=== PATIENT | male | born 1970 | race Caucasian/White ===

== ENCOUNTER 2018-10-17 08:41 | Emergency (ER) | payer OTHER ==
[2018-10-17] MEDS ORDERED: MORPHINE SULFATE 10 MG/ML INJ IV ONE (09:10)
--- NOTE | 2018-10-17 09:34 | ER Document Report ---
ED Fall - General Chief Complaint: Fall Stated Complaint: FALL/LEFT WRIST INJURY Time Seen by Provider: 10/17/18 09:03 Primary Care Provider: DEA BURNETT DO [ACTIVE STAFF] - Follow up as needed Mode of Arrival: Ambulatory Information source: Patient Notes: Patient is an otherwise healthy 48-year-old male presenting to the emergency department with complaints of back pain and left wrist pain after falling 10 feet through a roof. Patient reports he was working on the roof when 1 of the pieces of wood broke and he fell through landing onto a wooden deck straight onto his back. He denies striking his head, denies any loss of consciousness. He reports pain through his thoracic and lumbar spine. He also reports pain to his left shoulder and left wrist. He reports limited range of motion to his left wrist. He is unsure when his last tetanus shot was. - Related data Allergies/Adverse Reactions: No Known Allergies Allergy (Unverified 10/17/18 08:43) Past Medical History - General Information source: Patient - Social History Smoking Status: Never Smoker Frequency of alcohol use: None Drug Abuse: None Family History: Reviewed & Not Pertinent Patient has suicidal ideation: No Patient has homicidal ideation: No - Past Medical History Cardiac Medical History: Reports: Hx Hypertension Renal/ Medical History: Denies: Hx Peritoneal Dialysis GI Medical History: Reports: Hx Gastroesophageal Reflux Disease Review of Systems - Review of Systems Constitutional: No symptoms reported EENT: No symptoms reported Cardiovascular: No symptoms reported Respiratory: No symptoms reported Gastrointestinal: No symptoms reported Genitourinary: No symptoms reported Male Genitourinary: No symptoms reported Musculoskeletal: See HPI Skin: No symptoms reported Hematologic/Lymphatic: No symptoms reported Neurological/Psychological: No symptoms reported Physical Exam - Vital signs Vitals: Temp Pulse Resp BP Pulse Ox 98.1 F 110 H 18 152/106 H 94 10/17/18 08:44 10/17/18 08:44 10/17/18 08:44 10/17/18 08:44 10/17/18 08:44 - Notes Notes: PHYSICAL EXAMINATION: GENERAL: Well-appearing, well-nourished and in no acute distress. HEAD: Atraumatic, normocephalic. EYES: Pupils equal round and reactive to light, extraocular movements intact, sclera anicteric, conjunctiva are normal. ENT: Nares patent, oropharynx clear without exudates. Moist mucous membranes. NECK: Normal range of motion, supple without lymphadenopathy LUNGS: Breath sounds clear to auscultation bilaterally and equal. No wheezes rales or rhonchi. HEART: Regular rate and rhythm without murmurs ABDOMEN: Soft, nontender, nondistended abdomen. No guarding, no rebound. No masses appreciated. Musculoskeletal: Swelling noted to left wrist, strong radial pulse, cap refill less than 3 seconds, normal sensation, limited range of motion. No obvious deformity. Tenderness with movement of the left shoulder, no obvious deformity or injury. Abrasion noted over left elbow, normal range of motion to elbow. Tenderness to palpation to the thoracic and lumbar spine, no step-off or deformity. NEUROLOGICAL: Cranial nerves grossly intact. Normal speech. Normal sensory, motor exams PSYCH: Normal mood, normal affect. SKIN: Abrasion to left elbow. Course - Re-evaluation Re-evalutation: Cervical Spine CT 10/17/18 09:10 IMPRESSION: No evidence of acute osseous abnormality to the cervical spine. Lumbar Spine CT 10/17/18 09:10 IMPRESSION: 1. No evidence of acute bony abnormality. 2. Lower lumbar degenerative change with broad-based disc at L4-5 and likely moderate spinal canal stenosis. Thoracic Spine CT 10/17/18 09:10 IMPRESSION: 1. Mild superior endplate compression fracture of the T6 vertebral body with approximately 5% central height loss. No significant retropulsion or osseous canal narrowing 2. Mild endplate irregularity of the T4 vertebral body without discrete fracture identified, possibly chronic. Findings discussed with Mickie Condon at 0952 hours on 10/17/2018. Elbow X-Ray 10/17/18 09:11 IMPRESSION: No definite acute bony abnormality of the left elbow. Shoulder X-Ray 10/17/18 09:11 IMPRESSION: 1. Decreased subacromial space compatible with rotator cuff loss, chronicity uncertain. Recommend correlation with patient symptoms and physical exam. 2. No other evidence of acute osseous abnormality. Wrist X-Ray 10/17/18 09:11 IMPRESSION: Comminuted distal radial fracture with extension to the radiocarpal and distal radioulnar joints. I did discuss findings of patient's CT scan with my attending physician, Dr. David. Okay for patient to follow-up outpatient with both orthopedics for his radius fracture as well as Ortho/neurosurgery for his compression fracture. All of this was discussed with the patient and his significant other at the bedside. They both verbalized understanding and agreement with this plan. Patient will be sent home with pain and nausea medication prescriptions. He will call today to schedule his follow-up appointments. ED return precautions were discussed, patient and verbalized understanding and agreement with same. 10/17/18 14:59 Patient's called inquiring about neurosurgery follow-up. I gave her Dr. Ed López's contact information. He is with [facility] neurosurgery. [phone]. - Vital Signs Vital signs: Temp Pulse Resp BP Pulse Ox 98.4 F 88 16 130/90 H 97 10/17/18 12:09 10/17/18 12:09 10/17/18 12:09 10/17/18 12:09 10/17/18 12:09 Procedures - Immobilization Left wrist Pre-Proc Neuro Vasc Exam: Normal Immobilizer type: Sugar tong Performed by: PCT Post-Proc Neuro Vasc Exam: Normal Alignment checked and good: Yes Discharge - Discharge Clinical Impression: Radius fracture Qualifiers: Encounter type: sequela Radius location: distal Fracture type: closed Fracture morphology: unspecified fracture morphology Laterality: left Qualified Code(s): S52.502S - Unspecified fracture of the lower end of left radius, sequela Compression fracture of T6 vertebra Qualifiers: Encounter type: initial encounter Qualified Code(s): S22.050A - Wedge compression fracture of T5-T6 vertebra, initial encounter for closed fracture Condition: Stable Disposition: HOME, SELF-CARE Additional Instructions: Please keep the splint in place until seen by orthopedics. Call them today to schedule an appointment. Let them know you have a T6 compression fracture and a distal radius fracture. You may need to be seen by a neurosurgeon for the T6 compression fracture. I have given you contact info for both regular orthop edics as well as neurosurgery. I would start with the orthopedics and go from there. Please take pain medication as prescribed, do not take medication while driving or operating machinery, no intake of alcohol while on this medication. Please also take ibuprofen 600 mg every 6 hours for pain and inflammation. Use the nausea medication as needed. Ice and elevate the wrist as this will help with the discomfort. No heavy lifting. Prescriptions: Ondansetron [Zofran Odt 4 mg Tablet] 1 - 2 tab PO Q4H PRN #15 tab.rapdis PRN Reason: For Nausea/Vomiting Oxycodone HCl/Acetaminophen [Percocet 5-325 mg Tablet] 1 - 2 tab PO Q4H PRN #16 tablet PRN Reason: Referrals: DEA BURNETT DO [ACTIVE STAFF] - Follow up as needed
--- NOTE | 2018-10-17 09:51 | RADIOLOGY REPORT (SQ) ---
EXAM DESCRIPTION: CT CERVICAL SPINE WITHOUT COMPLETED DATE/TIME: 10/17/2018 9:42 am REASON FOR STUDY: fall 10 feet COMPARISON: None. TECHNIQUE: Axial images acquired through the cervical spine without intravenous contrast. Images re viewed with lung, soft tissue and bone windows. Reconstructed coronal and sagittal MPR images review ed. Images stored on PACS. All CT scanners at this facility use dose modulation, iterative reconstruction, and/or weight based d osing when appropriate to reduce radiation dose to as low as reasonably achievable (ALARA). [facility]: Dose Right [facility]: CareDose [facility]: Dose Right [facility]: Teradose 4D [facility]: [employer] RADIATION DOSE: CT Rad equipment meets quality standard of care and radiation dose reduction techniq ues were employed. CTDIvol: 17.7 mGy. DLP: 458 mGy-cm. mGy. LIMITATIONS: None. FINDINGS: ALIGNMENT: Straightening of the normal cervical lordosis. MINERALIZATION: Normal. VERTEBRAL BODIES: No fractures or dislocation. DISCS: No significant disc disease. FACETS, LATERAL MASSES, POSTERIOR ELEMENTS: No fractures. No dislocation. No acute findings. HARDWARE: None in the spine. VISUALIZED RIBS: No fractures. LUNG APICES AND SOFT TISSUES: No significant or acute findings. OTHER: No other significant finding. IMPRESSION: No evidence of acute osseous abnormality to the cervical spine. TECHNICAL DOCUMENTATION: JOB ID: [id number] Quality ID # 436: Final reports with documentation of one or more dose reduction techniques (e.g., Au tomated exposure control, adjustment of the mA and/or kV according to patient size, use of iterative reconstruction technique) 2010 [employer]- All Rights Reserved Reading location - IP/workstation name: [email or web address]
--- NOTE | 2018-10-17 09:58 | RADIOLOGY REPORT (SQ) ---
EXAM DESCRIPTION: CT THORACIC SPINE WITHOUT COMPLETED DATE/TIME: 10/17/2018 9:42 am REASON FOR STUDY: fall 10 feet COMPARISON: None. TECHNIQUE: Axial images acquired through the thoracic spine without intravenous contrast. Images re viewed with lung, soft tissue and bone windows. Reconstructed coronal and sagittal MPR images review ed. Images stored on PACS. All CT scanners at this facility use dose modulation, iterative reconstruction, and/or weight based d osing when appropriate to reduce radiation dose to as low as reasonably achievable (ALARA). [facility]: Dose Right [facility]: CareDose [facility]: Dose Right [facility]: Teradose 4D [facility]: [employer] RADIATION DOSE: CT Rad equipment meets quality standard of care and radiation dose reduction techniq ues were employed. CTDIvol: 100.0 mGy. DLP: 3313 mGy-cm. mGy. LIMITATIONS: None. FINDINGS: VISUALIZED LUNGS: No acute opacities. No pneumothorax. SOFT TISSUES: Calcified mediastinal and left hilar lymph nodes compatible with prior granulomatous di sease. VERTEBRAL BODIES: There is a mild superior endplate compression deformity of the T6 vertebral body wi th linear lucency extending along the anterior 1/3 of the vertebral body superior endplate. No signi ficant retropulsion. There is approximately 5% central height loss. Mild superior endplate deformit y of T4 without discrete fracture line identified. No other fractures identified. DISCS: Minimal multilevel thoracic disc height loss. No significant osteophytosis. ALIGNMENT: Normal. TRANSVERSE PROCESSES, POSTERIOR ELEMENTS: No fractures. No dislocation. No acute findings. HARDWARE: None in the spine. VISUALIZED RIBS: No fractures. OTHER: No other significant finding. IMPRESSION: 1. Mild superior endplate compression fracture of the T6 vertebral body with approximat corinne 5% central height loss. No significant retropulsion or osseous canal narrowing 2. Mild endplate irregularity of the T4 vertebral body without discrete fracture identified, possibl y chronic. Findings discussed with Mickie Condon at 0952 hours on 10/17/2018. TECHNICAL DOCUMENTATION: JOB ID: [id number] Quality ID # [id number]: Final reports with documentation of one or more dose reduction techniques (e.g., Au tomated exposure control, adjustment of the mA and/or kV according to patient size, use of iterative reconstruction technique) 2010 [employer]- All Rights Reserved Reading location - IP/workstation name: [email or web address]-
--- NOTE | 2018-10-17 10:02 | RADIOLOGY REPORT (SQ) ---
EXAM DESCRIPTION: CT LUMBAR SPINE WITHOUT COMPLETED DATE/TIME: 10/17/2018 9:42 am REASON FOR STUDY: fall 10 feet COMPARISON: None. TECHNIQUE: Axial images acquired through the lumbar spine without intravenous contrast. Images revi ewed with lung, soft tissue and bone windows. Reconstructed coronal and sagittal MPR images reviewed . All images stored on PACS. All CT scanners at this facility use dose modulation, iterative reconstruction, and/or weight based d osing when appropriate to reduce radiation dose to as low as reasonably achievable (ALARA). [facility]: Dose Right [facility]: CareDose [facility]: Dose Right [facility]: Teradose 4D [facility]: [employer] RADIATION DOSE: mGy. LIMITATIONS: None. FINDINGS: SEGMENTATION: Normal. No transitional anatomy. ALIGNMENT: Normal. VERTEBRAL BODIES: No fracture. Note suspicious osseous lesions. Likely L3 hemangioma versus Schmorl 's node. DISCS: Disc height loss at L3-4, L4-5 and L5-S1. Disc osteophyte at L4-5 causing mild canal stenosis . Additional broad-based disc bulge that L4-5 with resultant moderate spinal canal stenosis. PEDICLES, TRANSVERSE PROCESSES: Pedicles are intact. No fracture. No pars defect. FACETS, POSTERIOR ELEMENTS: Facets are well aligned. Mild osseous neural foraminal narrowing at L4-5 secondary to disc and facets. HARDWARE: None in the spine. VISUALIZED RIBS: No fractures. SOFT TISSUES: No significant or acute finding in adjacent soft tissues. OTHER: No other significant finding. IMPRESSION: 1. No evidence of acute bony abnormality. 2. Lower lumbar degenerative change with broad-based disc at L4-5 and likely moderate spinal canal s tenosis. TECHNICAL DOCUMENTATION: JOB ID: [id number] Quality ID # 436: Final reports with documentation of one or more dose reduction techniques (e.g., Au tomated exposure control, adjustment of the mA and/or kV according to patient size, use of iterative reconstruction technique) 2010 [employer]- All Rights Reserved Reading location - IP/workstation name: [email or web address]
--- NOTE | 2018-10-17 10:34 | RADIOLOGY REPORT (SQ) ---
EXAM DESCRIPTION: ELBOW LEFT OVER 2 VIEWS COMPLETED DATE/TIME: 10/17/2018 10:05 am REASON FOR STUDY: fall 10 feet COMPARISON: None. NUMBER OF VIEWS: Four views. TECHNIQUE: AP, lateral, and both oblique radiographic images acquired of the left elbow. LIMITATIONS: None. FINDINGS: MINERALIZATION: Normal. BONES: No acute bony abnormality. Punctate corticated ossific density posterior to the olecranon, li colby degenerative. Small olecranon enthesophyte. JOINT: No effusion. SOFT TISSUES: No soft tissue swelling. No foreign body. OTHER: No other significant finding. IMPRESSION: No definite acute bony abnormality of the left elbow. TECHNICAL DOCUMENTATION: JOB ID: [id number] [employer]- All Rights Reserved Reading location - IP/workstation name: [email or web address]
--- NOTE | 2018-10-17 10:35 | RADIOLOGY REPORT (SQ) ---
EXAM DESCRIPTION: WRIST LEFT 3 VIEWS COMPLETED DATE/TIME: 10/17/2018 10:05 am REASON FOR STUDY: fall 10 feet COMPARISON: None. NUMBER OF VIEWS: Three views. TECHNIQUE: AP, lateral, and oblique radiographic images acquired of the left wrist. LIMITATIONS: None. FINDINGS: MINERALIZATION: Normal. BONES: There is a comminuted distal radial fracture with extension into the radiocarpal and distal ra dioulnar joints. No significant angulation. No additional fractures identified. SOFT TISSUES: Soft tissue swelling about the wrist. OTHER: No other significant finding. IMPRESSION: Comminuted distal radial fracture with extension to the radiocarpal and distal radioulna r joints. TECHNICAL DOCUMENTATION: JOB ID: [id number] [employer]- All Rights Reserved Reading location - IP/workstation name: [email or web address]
--- NOTE | 2018-10-17 10:37 | RADIOLOGY REPORT (SQ) ---
EXAM DESCRIPTION: SHOULDER LEFT 2 OR MORE VIEWS COMPLETED DATE/TIME: 10/17/2018 10:05 am REASON FOR STUDY: fall 10 feet COMPARISON: None. NUMBER OF VIEWS: Three views. TECHNIQUE: Internal rotation, external rotation, and Y view images acquired of the left shoulder. LIMITATIONS: None. FINDINGS: MINERALIZATION: Normal. BONES: No evidence of fracture dislocation. No suspicious osseous lesions. JOINTS: No dislocation. Decreased subacromial space compatible with rotator cuff loss. VISUALIZED LUNGS AND RIBS: No pneumothorax. No rib fracture. SOFT TISSUES: No radiopaque foreign body. OTHER: No other significant finding. IMPRESSION: 1. Decreased subacromial space compatible with rotator cuff loss, chronicity uncertain. Recommend correlation with patient symptoms and physical exam. 2. No other evidence of acute osseous abnormality. TECHNICAL DOCUMENTATION: JOB ID: [id number] [employer]- All Rights Reserved Reading location - IP/workstation name: [email or web address]
[2018-10-17] MEDS ORDERED: DIPH/PERTUSS(ACELL)/TETANUS VAC/PF 0.5 ML SYR (>=10YO) IM ONE (11:53)
[2018-10-17 12:12] VITALS: BP 130/90
== END 2018-10-17 12:09 | disposition home or self-care (01) ==
LOC: ER 08:41
DX: S52.592A Other fractures of lower end of left radius, initial encounter for closed fracture (principal); S22.050A Wedge compression fracture of T5-T6 vertebra, initial encounter for closed fracture; M25.532 Pain in left wrist; S50.312A Abrasion of left elbow, initial encounter; M25.512 Pain in left shoulder; M54.5 Low back pain; M54.6 Pain in thoracic spine; W13.2XXA Fall from, out of or through roof, initial encounter; Y93.H3 Activity, building and construction; Y99.0 Civilian activity done for income or pay; M47.9 Spondylosis, unspecified; I10 Essential (primary) hypertension
CPT/HCPCS: 99284; 90471; 96374; 73080; 73030; 73110; 72125; 72128; 72131; 90715; 29125; J2270

== ENCOUNTER 2018-10-24 11:35 | Day surgery (SDC) | payer OTHER ==
[~2018-10-24 11:35] MED LIST: DEXAMETHASONE SOD PHOSPHATE INJ 4 MG/1 ML VIAL ONE; FENTANYL CITRATE INJ/PF 100 MCG/2 ML AMPUL ONE; KETOROLAC TROMETHAMINE 60 MG/2 ML SDV ONE; MIDAZOLAM 2 MG/2 ML INJ ONE; ONDANSETRON HCL INJ/PF 4 MG/2 ML SDV ONE; PROPOFOL INJ 200 MG/20 ML VIAL IV ONE; SUCCINYLCHOLINE CHLORIDE INJ 200 MG/10 ML VIAL ONE
[2018-10-24] MEDS ORDERED: CEFAZOLIN SODIUM 2 GM in DEXTROSE 5%-WATER 100 ML IV ONE (12:00)
--- NOTE | 2018-10-24 12:23 | RADIOLOGY REPORT (SQ) ---
EXAM DESCRIPTION: CHEST SINGLE VIEW COMPLETED DATE/TIME: 10/24/2018 12:06 pm REASON FOR STUDY: PREOP COMPARISON: None. EXAM PARAMETERS: NUMBER OF VIEWS: One view. TECHNIQUE: Single frontal radiographic view of the chest acquired. RADIATION DOSE: NA LIMITATIONS: None. FINDINGS: LUNGS AND PLEURA: No opacities, masses or pneumothorax. No pleural effusion. MEDIASTINUM AND HILAR STRUCTURES: No masses. Contour normal. HEART AND VASCULAR STRUCTURES: Heart normal in size. Normal vasculature. BONES: No acute findings. HARDWARE: None in the chest. OTHER: No other significant finding. IMPRESSION: NO ACUTE RADIOGRAPHIC FINDING IN THE CHEST. TECHNICAL DOCUMENTATION: JOB ID: [id number] [employer]- All Rights Reserved Reading location - IP/workstation name: [email or web address]
[2018-10-24 12:33] LABS: HEMATOCRIT 45.2 % (37.9-51.0); HEMOGLOBIN 15.6 g/dL (13.5-17.0); MEAN CORPUSCULAR HEMOGLOBIN 29.6 pg (27.0-33.4); MEAN CORPUSCULAR HGB CONC 34.5 g/dL (32.0-36.0); MEAN CORPUSCULAR VOLUME 86 fl (80-97); PLATELET COUNT 291 10^3/uL (150-450); RED BLOOD COUNT 5.25 10^6/uL (4.35-5.55); RED CELL DISTRIBUTION WIDTH 13.4 % (11.5-14.0); WHITE BLOOD COUNT 5.1 10^3/uL (4.0-10.5)
[2018-10-24 12:54] LABS: ANION GAP 10 (5-19); BLOOD UREA NITROGEN 22 mg/dL (7-20); CALCIUM 9.8 mg/dL (8.4-10.2); CARBON DIOXIDE 27 mmol/L (22-30); CHLORIDE 100 mmol/L (98-107); GLUCOSE 91 mg/dL (75-110)
[2018-10-24] MEDS ORDERED: BUPIVACAINE HCL 0.5 % INJ/PF 30 ML SDV ONE (14:48)
[2018-10-24] MEDS ORDERED: PROMETHAZINE HCL INJ 25 MG/1 ML VIAL IV PRN ×2 (15:39)
[2018-10-24] MEDS ORDERED: FENTANYL CITRATE INJ/PF 100 MCG/2 ML AMPUL IV PRN ×3 (15:39)
[2018-10-24] MEDS ORDERED: MORPHINE SULFATE 10 MG/ML INJ IV PRN (15:39)
[2018-10-24] MEDS ORDERED: ONDANSETRON HCL INJ/PF 4 MG/2 ML SDV IV PRN ×2 (15:39→17:19)
[2018-10-24] MEDS ORDERED: MEPERIDINE HCL/PF INJ 25 MG/1 ML DISP.SYRIN IV PRN (15:39)
[2018-10-24] MEDS ORDERED: DIPHENHYDRAMINE HCL 50 MG/ML VIAL IV PRN (15:39)
--- NOTE | 2018-10-24 17:15 | RADIOLOGY REPORT (SQ) ---
EXAM DESCRIPTION: NO CHG FLUORO; WRIST LEFT 3 VIEWS COMPLETED DATE/TIME: 10/24/2018 5:01 pm REASON FOR STUDY: ORIF LEFT WRIST COMPARISON: None. FLUOROSCOPY TIME: 1 minutes 9 seconds 4 Images saved to PACS LIMITATIONS: None. PROCEDURE: ACDF left radius FINDINGS: Images from fluoro document placement of a dorsal compression plate with multiple screws o n the distal radius. IMPRESSION: ORIF radial fracture. Refer to operative note for further information. COMMENT: PQRS 6045F: Fluoroscopy time of the procedure is documented in the report. TECHNICAL DOCUMENTATION: JOB ID: [id number] [employer]- All Rights Reserved Reading location - IP/workstation name: [email or web address]
--- NOTE | 2018-10-24 17:15 | RADIOLOGY REPORT (SQ) ---
EXAM DESCRIPTION: NO CHG FLUORO; WRIST LEFT 3 VIEWS COMPLETED DATE/TIME: 10/24/2018 5:01 pm REASON FOR STUDY: ORIF LEFT WRIST COMPARISON: None. FLUOROSCOPY TIME: 1 minutes 9 seconds 4 Images saved to PACS LIMITATIONS: None. PROCEDURE: ACDF left radius FINDINGS: Images from fluoro document placement of a dorsal compression plate with multiple screws o n the distal radius. IMPRESSION: ORIF radial fracture. Refer to operative note for further information. COMMENT: PQRS 6045F: Fluoroscopy time of the procedure is documented in the report. TECHNICAL DOCUMENTATION: JOB ID: [id number] [employer]- All Rights Reserved Reading location - IP/workstation name: [email or web address]
--- NOTE | 2018-10-24 17:19 | Operative Report ---
Operative Report DATE OF SURGERY: 10/24/18 PREOPERATIVE DIAGNOSIS: Left 3 part intra-articular distal radius fracture POSTOPERATIVE DIAGNOSIS: Same OPERATION: Open reduction to fixation left intra-articular distal radius fracture SURGEON: DEA BURNETT ANESTHESIA: GA COMPLICATIONS: None ESTIMATED BLOOD LOSS: Minimal PROCEDURE: Indication for above procedure: 48-year-old male who sustained a fall from a ladder onto his left wrist injuring Nunnelly his wrist but spine. Patient was found to have compression fractures which has been treated nonoperatively. Patient followed up with me for evaluation of his distal radius where x-rays demonstrate comminuted intra- articular distal radius fracture and CT scan confirmed intra-articular commi nution at that point decision was made to proceed with operative intervention. Risks and benefits were explained patient verbalized understanding consented for surgical procedure. Procedure In Detail: Patient was seen and evaluated in the preoperative holding area. The LEFT upper extremity was initialized and marked. Patient received 2g of Ancef IV for bacterial prophylaxis. Patient was taken back to the operative room where transferred to the operative table and placed under general anesthesia. Once they were adequately anesthetized a nonsterile tourniquet was placed on the upper extremity. A surgical team debriefing was performed ensuring all instrumentation was available, the surgical procedure was discussed with possible concerns reviewed. The upper extremity was prepped with chlorhexidine and alcohol and draped in a sterile fashion. A timeout was done identifying correct patient, procedure and extremity everyone in attendance agree with this and verbalized no concerns. The extremity was exsanguinated the tourniquet was inflated to 250 mmHg. Longitudinal skin incision was made just ulnar to Kaylin's tubercle. Blunt dissection was performed. Third dorsal compartment was opened and EPL transposed in a radial direction. Superficial radial nerve was identified and retracted. The second and fourth dorsal compartments were elevated to expose the dorsal radius. Small capsulotomy was made to evaluate intra-articular combination. Under direct visualization the articular step-off was anatomically released under direct visualization there was dorsal comminution which was impacted into position and held with a K wire. An [employer] standard dorsal distal radius plate was then provisionally fixed distally with K wires. C-arm fluoroscopy was obtained confirming pentecostalism of alignment and intra-articular configuration once confirmed proceeded with final fixation. Bicortical screw was placed in the dynamic hole proximally providing compression of the articular surface and the dorsal comminution. Second bicortical screw was then placed. C-arm fluoroscopy was once again obtained confirming maintained alignment. Distal fixation was then obtained by drilling to but not through the far cortex and the appropriate size locking screw inserted. C-arm fluoroscopy was obtained confirming pentecostalism of alignment no evidence of intra-articular step-off and appropriate placement of hardware. The articular surface was likely visualized to ensure no evidence of intra-articular screw penetration. Final fixation with locking screw was placed proximally. C-arm fluoroscopy radiographs are obtained confirming pentecostalism of alignment and appropriate hardware placement. There is no crepitus with wrist range of motion. No evidence of DRUJ instability. Negative Granger's test. Wound was copiously irrigated with normal saline. Tourniquet was then deflated any peripheral bleeding was controlled with bipolar cautery until the wound was dry. Capsule was closed with interrupted 2-0 Vicryl suture. Retinaculum was reapproximated with 2-0 Vicryl suture maintaining transposition of the EPL tendon to protect from underlying hardware. Subcutaneous tissues were closed with interrupted 3-0 Monocryl suture. Skin was closed with running subcuticular 4-0 Monocryl reinforced with Dermabond Steri-Strips. 30 cc of 0.5% bupivacaine without epinephrine was injected for postoperative pain control. Patient was placed in a dorsal splint. Sponge counts, instrument counts, needle counts were correct. Patient was then awoken from anesthesia. Transferred from the operating room table to the operating room stretcher. There was no intraoperative complications patient tolerated procedure well stable to PACU. Postoperative plan: Patient will follow-up in the office in 2 weeks at which point we will obtain radiographs and transition to short arm Exos brace.
--- NOTE | 2018-10-24 17:21 | Discharge Summary ---
Discharge Summary (SDC) - Discharge Final Diagnosis: Left distal radius fracture Date of Surgery: 10/24/18 Discharge Date: 10/24/18 Condition: Good Forms: ASU Anesthesia D/C Instruction, Discharge POC-Surgical Service Treatment or Instructions: Schedule Follow Up w/ Dr. Omi Burnett @ [facility] for Surgery to be seen in 10-14 days or as scheduled [place]: [place]: [place]: Ice and elevate Keep splint clean/dry/intact, do not remove. If your fingers become numb please unwrap the Timmy wrap but leave the splint in place, if the sensation does not return within 30 minutes please return to the emergency department. May begin finger range of motion attempting to make full fist. Please use ibuprofen (Motrin or Advil) 600-800 mg every 8 hours as needed for pain or fever DO NOT TAKE w/ TORADOL may use once TORADOL complete. You may also use acetaminophen (Tylenol) 1000 mg every 4-6 hours as needed for pain or fever. Please be aware that many medications contain acetaminophen, do not exceed a total of 1000 mg of acetaminophen every 6 hours. If ibuprofen and acetaminophen are not sufficient for your pain you may take the Percocet/Bomoseen. Please be aware that the Percocet/Bomoseen does contain Tylenol. Stool softener of choice when on pain medication. USE OF [id number] IBUPROFEN: Ibuprofen (Advil, Nuprin, Medipren, Motrin IB) is a medication for fever and pain control. In addition, it has anti- inflammatory effects which may be beneficial, especially in the treatment of injuries. It's best to take ibuprofen with food. Persons with ulcer disease or allergy to aspirin should notify their physician of this before taking ibuprofen. Ibuprofen can be given every four to six hours, for a total of four doses daily. Age Pain or fever dose Antiinflammatory dose 6-8 yr 200 mg (1 tab) 200 mg (1 tab) 9-11 yr 200 mg (1 tab) 200-400 mg (1-2 tab) 11-14 yr 200-400 mg (1-2 tab) 400 mg (2 tab) 15-adult 400 mg (2 tab) 600 mg (3 tab) ORAL NARCOTIC MEDICATION: You have been given a prescription for pain control. This medication is a narcotic. It's best taken with food, as nausea can result if taken on an empty stomach. Don't operate machinery or drive within six hours of taking this medication. Do not combine this medicine with alcohol, or with any medication which can cause sedation (such as cold tablets or sleeping pills) unless you get permission from the physician. Narcotics tend to cause constipation. If possible, drink plenty of fluids and eat a diet high in fiber and fruits. Please be aware that prescription narcotics also have the potential for abuse. People become addicted to these medications because of the general sense of wellbeing that they induce. This feeling along with a significant reduction in tension, anxiety, and aggression provides a stimulating seductive quality to these drugs. Once your pain is under control, we encourage you to discard your unused narcotics. Prescriptions: Oxycodone HCl/Acetaminophen [Percocet 5-325 mg Tablet] 1 tab PO Q6 PRN #25 tab PRN Reason: Referrals: OMI BURNETT DO [ACTIVE STAFF] - 11/12/18 3:00 pm Discharge Diet: As Tolerated Respiratory Treatments at Home: Deep Breathing/Coughing Discharge Activity: No Lifting Over 10 Pounds, No Lifting/Push/Pulling Report the Following to Your Physician Immediately: Fever over 101 Degrees, Unusual Bleeding, Redness, Swelling, Warmth, Increased Soreness
[2018-10-24] MEDS: FENTANYL CITRATE INJ/PF 100 MCG/2 ML AMPUL ONE ×2 (17:24→17:30)
[2018-10-24] MEDS: HYDROMORPHONE HCL INJ/PF 2 MG/ML AMPULE ONE ×2 (17:34→17:41)
[2018-10-24] MEDS: MORPHINE SULFATE 10 MG/ML INJ IV PRN (18:47)
[2018-10-24] MEDS: OXYCODONE-ACETAMINOPHEN 5-325 MG TABLET PO PRN (20:31)
[2018-10-25] MEDS: MORPHINE SULFATE 10 MG/ML INJ IV PRN (03:02)
[2018-10-25] MEDS: OXYCODONE-ACETAMINOPHEN 5-325 MG TABLET PO PRN (05:04)
[2018-10-25 06:37] VITALS: BP 143/93
--- NOTE | 2018-10-25 10:30 | EKG REPORT ---
SEVERITY:- BORDERLINE ECG - SINUS RHYTHM PROBABLE LEFT ATRIAL ABNORMALITY : Confirmed by: Ej Garber 25-Oct-2018 10:29:20
== END 2018-10-25 08:20 | disposition home or self-care (01) ==
LOC: OROUT 11:35 → 4N 18:40 → OROUT 10-25 08:20
PROVIDERS: ATTEND Orthopaedic Surgery
DX: S52.572A Other intraarticular fracture of lower end of left radius, initial encounter for closed fracture (principal); W11.XXXA Fall on and from ladder, initial encounter; M25.532 Pain in left wrist; I10 Essential (primary) hypertension; K21.9 Gastro-esophageal reflux disease without esophagitis; Z79.899 Other long term (current) drug therapy
CPT/HCPCS: 36415; 85027; 80048; 71045; 73110; 93005; 93010; 00830; 25609; C1769; C1713 ×5; J2250; J3490; J0690; J1100; J1885; J3010; J2270 ×2; J1170; J0330; J2405; J7060; J2704

== ENCOUNTER 2019-01-06 05:33 | Day surgery (SDC) | payer OTHER ==
--- NOTE | 2018-12-30 09:59 | RADIOLOGY REPORT (SQ) ---
EXAM DESCRIPTION: CHEST PA/LATERAL COMPLETED DATE/TIME: 12/30/2018 9:37 am REASON FOR STUDY: PRE-OP COMPARISON: 10/24/2018 EXAM PARAMETERS: NUMBER OF VIEWS: two views TECHNIQUE: Digital Frontal and Lateral radiographic views of the chest acquired. RADIATION DOSE: NA LIMITATIONS: none FINDINGS: LUNGS AND PLEURA: Few small stable nodules at the left lung base. No acute pulmonary con solidation. No pneumothorax or pleural effusion. MEDIASTINUM AND HILAR STRUCTURES: No masses or contour abnormalities. HEART AND VASCULAR STRUCTURES: Heart normal size. No evidence for failure. BONES: No acute findings. HARDWARE: None in the chest. OTHER: No other significant finding. IMPRESSION: 1. No significant interval changes since the prior examination dated 10/24/2018. A few small stable nodules at the left lung base may represent granuloma. No acute findings. TECHNICAL DOCUMENTATION: JOB ID: [id number] [employer]- All Rights Reserved Reading location - IP/workstation name: [email or web address]
[2018-12-30 10:09] LABS: ABSOLUTE EOSINOPHILS # (AUTO) 0.1 10^3/uL (0.0-0.6); ABSOLUTE LYMPHOCYTES (AUTO) 1.9 10^3/uL (0.5-4.7); ABSOLUTE MONOCYTES (AUTO) 0.5 10^3/uL (0.1-1.4); ABSOLUTE NEUT (AUTO) 2.6 10^3/uL (1.7-8.2); BASOPHILS % (AUTO) 0.5 % (0-2); EOSINOPHILS % (AUTO) 1.5 % (0-6); HEMATOCRIT 45.7 % (37.9-51.0); HEMOGLOBIN 15.5 g/dL (13.5-17.0); LYMPHOCYTES % (AUTO) 36.9 % (13-45); MEAN CORPUSCULAR HEMOGLOBIN 29.3 pg (27.0-33.4); MEAN CORPUSCULAR HGB CONC 33.9 g/dL (32.0-36.0); MEAN CORPUSCULAR VOLUME 86 fl (80-97); MONOCYTES % (AUTO) 9.7 % (3-13); PLATELET COUNT 260 10^3/uL (150-450); RED BLOOD COUNT 5.29 10^6/uL (4.35-5.55); RED CELL DISTRIBUTION WIDTH 13.8 % (11.5-14.0); SEGMENTED NEUTROPHILS % (AUTO) 51.4 % (42-78); TOTAL CELLS COUNTED % (AUTO) 100 %; WHITE BLOOD COUNT 5.1 10^3/uL (4.0-10.5)
[2018-12-30 10:25] LABS: ANION GAP 10 (5-19); BLOOD UREA NITROGEN 15 mg/dL (7-20); CALCIUM 9.8 mg/dL (8.4-10.2); CARBON DIOXIDE 27 mmol/L (22-30); CHLORIDE 102 mmol/L (98-107); GLUCOSE 95 mg/dL (75-110); POTASSIUM 5.1 mmol/L (3.6-5.0)
--- NOTE | 2018-12-30 23:52 | EKG REPORT ---
SEVERITY:- NORMAL ECG - SINUS RHYTHM : Confirmed by: Angelique Trinh MD 30-Dec-2018 23:52:13
[~2019-01-06 05:33] MED LIST changes: +CEFAZOLIN SODIUM 2 GM in DEXTROSE 5%-WATER 100 ML IV PRN; -DEXAMETHASONE SOD PHOSPHATE INJ 4 MG/1 ML VIAL ONE; -FENTANYL CITRATE INJ/PF 100 MCG/2 ML AMPUL ONE; -KETOROLAC TROMETHAMINE 60 MG/2 ML SDV ONE; +LACTATED RINGERS 1000 ML IV PRN; +LIDOCAINE 0.5% INJ-PF (5 MG/ML) 50 ML SDV SUBCUT PRN; -MIDAZOLAM 2 MG/2 ML INJ ONE; -ONDANSETRON HCL INJ/PF 4 MG/2 ML SDV ONE; -PROPOFOL INJ 200 MG/20 ML VIAL IV ONE; -SUCCINYLCHOLINE CHLORIDE INJ 200 MG/10 ML VIAL ONE
[2019-01-06] MEDS ORDERED: MIDAZOLAM 2 MG/2 ML INJ ONE (06:18)
[2019-01-06] MEDS ORDERED: EPHEDRINE SULFATE INJ 50 MG/1 ML AMPULE ONE (06:18)
[2019-01-06] MEDS ORDERED: FENTANYL CITRATE INJ/PF 250 MCG/5 ML AMPULE ONE (06:18)
[2019-01-06] MEDS ORDERED: DEXAMETHASONE SOD PHOSPHATE INJ 4 MG/1 ML VIAL ONE (06:18)
[2019-01-06] MEDS ORDERED: FENTANYL CITRATE INJ/PF 100 MCG/2 ML AMPUL ONE ×2 (06:18→11:03)
[2019-01-06] MEDS ORDERED: ONDANSETRON HCL INJ/PF 4 MG/2 ML SDV ONE (06:19)
[2019-01-06] MEDS ORDERED: PROPOFOL INJ 200 MG/20 ML VIAL IV ONE (06:19)
[2019-01-06] MEDS ORDERED: LIDOCAINE 0.5% INJ-PF (5 MG/ML) 50 ML SDV ONE (06:21)
[2019-01-06] MEDS ORDERED: EPINEPHRINE INJ/PF 1 MG/1 ML AMPULE ONE (07:11)
[2019-01-06] MEDS ORDERED: BUPIVACAINE HCL 0.5 % INJ/PF 30 ML SDV ONE (07:11)
[2019-01-06] MEDS ORDERED: DIPHENHYDRAMINE HCL 50 MG/ML VIAL IV PRN (08:16)
[2019-01-06] MEDS ORDERED: MEPERIDINE HCL/PF INJ 25 MG/1 ML DISP.SYRIN IV PRN (08:16)
[2019-01-06] MEDS ORDERED: FENTANYL CITRATE INJ/PF 100 MCG/2 ML AMPUL IV PRN ×3 (08:16)
[2019-01-06] MEDS ORDERED: MORPHINE SULFATE 10 MG/ML INJ IV PRN ×2 (08:16→11:11)
[2019-01-06] MEDS ORDERED: PROMETHAZINE HCL INJ 25 MG/1 ML VIAL IV PRN ×2 (08:16)
[2019-01-06] MEDS ORDERED: ONDANSETRON HCL INJ/PF 4 MG/2 ML SDV IV PRN ×2 (08:16→11:11)
[2019-01-06] MEDS ORDERED: LIDOCAINE 2% INJ (20 MG/ML) 20 ML MDV ONE (09:06)
[2019-01-06] MEDS ORDERED: LIDOCAINE 2%/EPINEPHRINE INJ 20 ML VIAL ONE (09:06)
[2019-01-06] MEDS ORDERED: ROPIVACAINE HCL 0.5% INJ/PF (5 MG/1 ML) 30 ML SDV ONE (09:07)
[2019-01-06] MEDS ORDERED: KETOROLAC TROMETHAMINE INJ/PF 30 MG/1 ML SDV ONE (10:59)
[2019-01-06] MEDS ORDERED: ACETAMINOPHEN 1,000 MG/100 ML RTUPB IV ONE (10:59)
[2019-01-06] MEDS ORDERED: DEXMEDETOMIDINE INJ 80 MCG/20 ML VIAL IV ONE (11:05)
--- NOTE | 2019-01-06 11:07 | Discharge Summary ---
Discharge Summary (SDC) - Discharge Final Diagnosis: Left rotator cuff tear Date of Surgery: 01/06/19 Discharge Date: 01/06/19 Condition: Good Treatment or Instructions: Schedule Follow Up w/ Dr. Omi Amaya @ [facility] for Surgery to be seen in 10-14 days or as scheduled [place]: [place]: [place]: May remove dressing on postop day #3, keep incision covered and dry. Cryocuff to shoulder May begin pendulum exercises along w/ hand, wrist and elbow range of motion 4x per day or as tolerated. May remove sling for hygiene purposes otherwise continue it at all times. Stool softener of choice when on pain medication. USE OF [id number] IBUPROFEN: Ibuprofen (Advil, Nuprin, Medipren, Motrin IB) is a medication for fever and pain control. In addition, it has anti- inflammatory effects which may be beneficial, especially in the treatment of injuries. It's best to take ibuprofen with food. Persons with ulcer disease or allergy to aspirin should notify their physician of this before taking ibuprofen. Ibuprofen can be given every four to six hours, for a total of four doses daily. Age Pain or fever dose Antiinflammatory dose 6-8 yr 200 mg (1 tab) 200 mg (1 tab) 9-11 yr 200 mg (1 tab) 200-400 mg (1-2 tab) 11-14 yr 200-400 mg (1-2 tab) 400 mg (2 tab) 15-adult 400 mg (2 tab) 600 mg (3 tab) ORAL NARCOTIC MEDICATION: You have been given a prescription for pain control. This medication is a narcotic. It's best taken with food, as nausea can result if taken on an empty stomach. Don't operate machinery or drive within six hours of taking this medication. Do not combine this medicine with alcohol, or with any medication which can cause sedation (such as cold tablets or sleeping pills) unless you get permission from the physician. Narcotics tend to cause constipation. If possible, drink plenty of fluids and eat a diet high in fiber and fruits. Please be aware that prescription narcotics also have the potential for abuse. People become addicted to these medications because of the general sense of wellbeing that they induce. This feeling along with a significant reduction in tension, anxiety, and aggression provides a stimulating seductive quality to these drugs. Once your pain is under control, we encourage you to discard your unused narcotics. Prescriptions: Ketorolac Tromethamine [Toradol 10 mg Tablet] 10 mg PO Q8HP PRN #12 tablet PRN Reason: Oxycodone HCl/Acetaminophen [Percocet 7.5-325 mg Tablet] 1 - 2 tab PO Q6 PRN #25 tab PRN Reason: Referrals: JORGE A FLORES MD [Primary Care Provider] - Discharge Diet: As Tolerated Respiratory Treatments at Home: Deep Breathing/Coughing, Incentive Spirometer Discharge Activity: No Lifting Over 10 Pounds, No Lifting/Push/Pulling Report the Following to Your Physician Immediately: Fever over 101 Degrees, Unusual Bleeding, Redness, Swelling, Warmth, Increased Soreness
--- NOTE | 2019-01-06 11:07 | Operative Report ---
Operative Report DATE OF SURGERY: 01/06/19 PREOPERATIVE DIAGNOSIS: Left rotator cuff tear, impingement syndrome, degenerat ramiro SLAP tear, tenosynovitis biceps tendon POSTOPERATIVE DIAGNOSIS: Same OPERATION: Left shoulder arthroscopy with rotator cuff repair, subacromial de compression, acromioplasty with open subpectoralis biceps tenodesis SURGEON: DEA BURNETT ANESTHESIA: GA COMPLICATIONS: None ESTIMATED BLOOD LOSS: Minimal PROCEDURE: Indication for above procedure: 48-year-old male who sustained an injury to his left shoulder while at work. Patient continued to have pain and discomfort with weakness and inability to lift his arm above his head. MRI was then obtained demonstrating full-thickness rotator cuff tear with retraction. Risks and benefits of the surgical procedure along with postoperative rehabilitation were explained patient verbalized understanding consented for surgical procedure. Procedure In Detail: Patient was seen and evaluated in the preoperative holding area. The LEFT upper extremity was initialized and marked. Patient received 2g of Ancef IV for bacterial prophylaxis. Patient was taken back to the operative room where transferred to the operative table and placed under general anesthesia. Once they were adequately anesthetized patient placed in the beachchair position. Cervical spine was placed in neutral position all bony prominences were padded including nonoperative upper extremity and bilateral lower extremity. A surgical team debriefing was performed ensuring all instrumentation was available, the surgical procedure was discussed with possible concerns reviewed. The upper extremity was prepped with ChloraPrep draped in a sterile fashion. A timeout was done identifying correct patient, procedure and extremity everyone in attendance agree with this and verbalized no concerns. Posterior portal was established and arthroscope was introduced into the glenohumeral joint. Via translation anterior portal was established with an 18- gauge needle. Diagnostic arthroscopy of the glenohumeral joint demonstrated no evidence of glenohumeral degenerative changes or significant glenohumeral synovitis with significant tenosynovium of the biceps tendon. Subscapularis was identified and intact without evidence of disruption. There was evidence of full-thickness rotator cuff tear with retraction back to the glenoid. Partial synovectomy was performed within the glenohumeral joint and biceps tenotomy was performed to allow for later tenodesis. Arthroscope was then introduced into the subacromial space subacromial decompression was performed. Coracoacromial ligament was released but not excised. Anterior acromial spur was resected with a arthroscopic bur. Rotator cuff once again demonstrated full-thickness tear with retraction back to the glenohumeral joint there was intact fibers of the teres minor. The greater tuberosity was then debrided down to cancellus bone for optimal healing. The rotator cuff was released superior and inferior along the glenoid with a anterior release performed to obtain adequate excursion to allow repair. Given the retraction and size of the tear decision was made to proceed with double row repair utilizing Arthrex suture bridge. Swivel lock anchors were placed along the medial row anterior and posterior just adjacent to the art icular surface at the glenoid. Fiber tape was placed anterior and posterior. FiberWire was then placed anteriorly and secured with a horizontal mattress suture to the anterior medial portal. One limb of the anterior one limb of the posterior sutures were then placed through a swivel lock anchor along the lateral row. This was then repeated obtaining optimal compression of the rotator cuff to the greater tuberosity there is no evidence of instability with range of motion. There was a small anterior leaflet remaining and this was this secured with a simple suture obtaining fixation into the anterior lateral anchor. Once again arthroscopically there is no evidence of defect remaining into the joint and full range of motion was obtained without instability of the rotator cuff repair. Longitudinal skin incision was made along the inferior third of the pectoralis major. Blunt dissection was performed identifying the inferior border of the pectoralis major. Any peripheral vasculature was carefully coagulated. I then identified the tenotomized long head of the biceps which was retrieved and brought out the wound. The tendon was then secured 2 centimeters distal to the musculotendinous junction with a #2 fiber loop and the remaining diseased portion of the biceps was excised. The Arthrex biceps tenodesis button was then secured to my biceps tendon. Under direct visualization I then cleared an area along the anterior aspect of the humerus and drilled unicortically. The button was then placed into the unicortical hole and the biceps tendon was shuttled to the anterior cortex of the humerus. I then checked stability of the button confirming maximal fixation. Utilizing the free needle one limb of the remaining FiberWire was secured to the biceps providing further fixation. The elbow was then placed through range of motion to ensure appropriate tension of the biceps with flexion and extension. The wound was then copiously irrigated with normal saline. Any peripheral vasculature was carefully coagulated with Bovie cautery. Skin was closed a running subcuticular 3-0 Monocryl suture reinforced with Dermabond and Steri-Strips. Portal incisions were closed with interrupted 3-0 nylon suture. 10 cc of 0.5% bupivacaine without epinephrine was injected for postoperative pain control. Patient was placed in a abduction sling. Sponge counts, instrument counts, needle counts were correct. Patient was then awoken from anesthesia. Transferred from the operating room table to the operating room stretcher. There was no intraoperative complications patient tolerated procedure well stable to PACU. Postop plan: Patient follow in the office in 2 weeks at which point we will proceed with wound check. Patient will begin physical therapy 6 weeks postoperatively as per massive rotator cuff repair protocol.
[2019-01-06] MEDS ORDERED: OXYCODONE-ACETAMINOPHEN 5-325 MG TABLET PO PRN (11:11)
[2019-01-06 13:02] VITALS: BP 169/75
[2019-01-06] MEDS ORDERED: SUCCINYLCHOLINE CHLORIDE INJ 200 MG/10 ML VIAL ONE (14:14)
== END 2019-01-06 13:00 | disposition home or self-care (01) ==
LOC: OROUT 05:33
PROVIDERS: ATTEND Orthopaedic Surgery
DX: S43.432A Superior glenoid labrum lesion of left shoulder, initial encounter (principal); X58.XXXA Exposure to other specified factors, initial encounter; M75.41 Impingement syndrome of right shoulder; M65.812 Other synovitis and tenosynovitis, left shoulder; M75.122 Complete rotator cuff tear or rupture of left shoulder, not specified as traumatic; M25.512 Pain in left shoulder; I10 Essential (primary) hypertension
CPT/HCPCS: 93005; 36415; 85025; 80048; 71046; 93010; 01630; 29827; 29826; 24340; C1713 ×3; J2795; J2250; J3490 ×5; J0690; J1100; J0171; J3010 ×2; J1885; J0330; J2405; J7060; J2704; J0131; 1630